=== PATIENT | male | born 1990 | race Two or more races ===

== ENCOUNTER 2024-10-14 11:36 | Emergency (ER) | payer MEDICAID, SELFPAY ==
[2024-10-14 11:56] VITALS: BP 118/65; PULSE 82; RESP 18; TEMP 36.7; O2SAT 97; BMI 24.5
--- NOTE | 2024-10-14 11:56 | EDNOTE_ITS ---
<Statement entered by Elen Whitlock MD - 10/23/24 19:22> As co-signing physician, I was present and available for consult prn. I concur with the plan and care as documented by the midlevel provider. ED General RME/HPI General Chief complaint: General Adult/Misc Complain Stated complaint: CHECK UP Time Seen by Provider: 10/14/24 11:39 Arrival date/time: 10/14/24 11:36 34-year-old male presents emergency department today requesting a checkup patient reports no medical complaints at this time patient reports no fever nausea or vomiting patient reports no chest pain shortness of breath or abdominal pain Limitations: no limitations Related Data Previous Rx's ?Medication ?Instructions ?Recorded apixaban 2.5 mg tablet (Eliquis) 5 mg (2 x 2.5 mg) PO BID #60 tabs 02/10/17 Allergies Allergy/AdvReac Type Severity Reaction Status Date / Time NKA* Allergy Uncoded 10/14/24 11:37 Review of Systems Review of Systems Systems Reviewed: All systems reviewed, normal except as documented Constitutional Constitutional: Reports system reviewed and no additional complaints, except as documented, Denies fever(s) and Denies headache(s) Eyes Eyes: Reports system reviewed and no additional complaints, except as documented and Denies blurry vision ENT Ears, Nose, Mouth, and Throat: Reports system reviewed and no additional complaints, except as documented, Denies headache(s), Denies nasal congestion and Denies nasal discharge Cardiovascular Cardiovascular: Reports system reviewed and no additional complaints, except as documented, Denies chest pain and Denies dyspnea Respiratory Respiratory: Reports system reviewed and no additional complaints, except as documented, Denies chest congestion, Denies cough and Denies dyspnea Gastrointestinal Gastrointestinal: Reports system reviewed and no additional complaints, except as documented and Denies abdominal pain Integumentary/Breasts Skin/Breast: Reports system reviewed and no additional complaints, except as documented and Denies rash Neurologic Neurologic: Reports system reviewed and no additional complaints, except as documented, Reports as per HPI and Denies headache(s) Past Medical History Social History SMOKING STATUS: Never smoker ED Exam General Limitations: Present no limitations General appearance: Present alert and in no apparent distress Head Head exam: Present atraumatic Eye Eye exam: Present normal appearance, PERRL and EOMI ENT ENT exam: Present normal exam, normal oropharynx and mucous membranes moist Neck Neck exam: Present normal inspection, full ROM and trachea midline Chest Chest inspection: Present normal inspection and symmetric chest wall rise Respiratory Respiratory exam: Present normal lung sounds bilaterally Cardiovascular Cardiovascular exam: Present regular rate, normal rhythm and normal heart sounds Abdominal Exam Abdominal exam: Present soft and normal bowel sounds Extremities Exam Extremities exam: Present normal inspection and full ROM Back Exam Back exam: Present normal inspection and full ROM Neurological Exam Neurological exam: Present alert, oriented X3 and CN II-XII intact Psychiatric Psychiatric exam: Present normal affect and normal mood Skin Skin exam: Present warm, dry, intact and normal color Course Quality Measures none Vital Signs Vital signs: Vital Signs Temperature 98.1 F 10/14/24 11:56 Pulse Rate 82 10/14/24 11:56 Respiratory Rate 18 10/14/24 11:56 Blood Pressure 118/65 10/14/24 11:56 Pulse Oximetry (%) 97 10/14/24 11:56 Oxygen Delivery Method Room Air 10/14/24 11:56 O2 saturation 97% room air within normal limits MDM Patient data External records reviewed:: [facility] previous records Clinical information provided by:: patient Social determinants that could affect healthcare access:: none Patient has the following chronic illnesses:: See history How is presenting disease/condition affected by chronic disease/condition?: uneffected by Evaluation data The following diagnostics were reviewed and interpreted by me:: other (specify) (N/A) Lab and/or radiology exams considered but not ordered:: Consider not ordered Interpretation Summary: N/A Medications Medications considered but not ordered:: Given Medication administrations:: Given Consultations Consultation(s) initiated? (list below): No Diagnosis Differential Diagnosis ED Complaint MDM: URI, viral illness, medical exam Most likely diagnosis given after review of the tests above:: Normal exam Admission Indicated Admission indicated?: not indicated Explain why admission is indicated or not indicated:: No criteria Admission Request Was there a request for admission?: No Disposition Plan Disposition Plan: Discharge Discharge Attestation Discharge Attestation: The patient and all family members were given an opportunity to ask questions and understood the discharge instructions. Discharge instructions specifically effects, indications for sooner follow up or return to the emergency department, and the expected course of current diagnosis. Patient condition: Stable Medical Decision Making MDM Narrative MDM Narrative: 34-year-old male presents emergency department today requesting a checkup patient reports no medical complaints at this time patient reports no fever nausea or vomiting patient reports no chest pain shortness of breath or abdominal pain On exam patient medically stable patient does not appear ill or toxic Explained to the patient he can follow-up with his primary care doctor for a checkup and further outpatient workup Patient discharged home in no distress to follow-up with primary care doctor in the next 24 to 48 hours and for any worsening symptoms to return to the ER immediately Differential Diagnosis Differential Diagnosis: URI, viral illness, medical exam Medical Records Medical records reviewed: Yes I reviewed the patient's medical records. Discharge Plan Plan Patient Disposition: HOME (Self Care) Disposition Comment: Stable Prescriptions/Referrals Prescriptions/Med Rec: No Action apixaban [Eliquis] 2.5 MG tablet 5 mg PO BID Qty: 60 0RF Problem List Clinical Impression: Normal exam Patient/Caregiver Discharge Instructions Additional Instructions: Please follow up with your primary care doctor in the next 24-48hrs for any worsening symptoms return here immediately Print Language: Tongan Stand Alone Forms: Dorinda Award Info., Patient Portal Info Letter PA/ROX Supervising Physician EWA/ROX Supervising Physician: Dr WHITLOCK
== END 2024-10-14 12:00 | disposition home or self-care (01) ==
PROVIDERS: Emergency Provider Emergency Medicine
DX: Z00.00 Encounter for general adult medical examination without abnormal findings (principal)
CPT/HCPCS: 99281